=== PATIENT | male | born 1990 | race Hispanic/Latino ===

== ENCOUNTER 2017-11-25 04:29 | Emergency (ER) | payer BC, OTHER ==
--- NOTE | 2017-11-25 05:43 | ED PDOC ---
HPI: Psych/Substance Abuse Time Seen by Provider: 11/25/17 04:30 Chief Complaint (Nursing): Alcohol Ingestion Chief Complaint (Provider): Alcohol Ingestion History Per: Patient History/Exam Limitations: no limitations Current Symptoms Are (Timing): Still Present Modifying Factor(s): Alcohol Additional Complaint(s): 27 year old male was brought to the ER via EMS for alcohol ingestion. Patient reports he is dehydrated and states he drank alcohol 3 hour ago prior to arrival. He denies any head injury or fall. PMD: No Family Provider Past Medical History Reviewed: Historical Data, Nursing Documentation, Vital Signs Vital Signs: Last Vital Signs Temp 97.9 F 11/25/17 04:38 Pulse 87 11/25/17 04:38 Resp 16 11/25/17 04:38 BP 141/85 11/25/17 04:38 Pulse Ox 96 11/25/17 04:38 - Medical History PMH: No Chronic Diseases - Surgical History Surgical History: No Surg Hx - Family History Family History: States: Unknown Family Hx - Social History Ex-Smoker (has not smoked in the last 12 months): No Alcohol: Social Drugs: Denies - Allergies Allergies/Adverse Reactions: Allergies Allergy/AdvReac Type Severity Reaction Status Date / Time No Known Allergies Allergy Verified 11/25/17 05:29 Review of Systems ROS Statement: Except As Marked, All Systems Reviewed And Found Negative Constitutional: Positive for: Other (dehydration) Neurological: Negative for: Other (head injury ) Psych: Negative for: Suicidal ideation (homicidal ideation ) Physical Exam - Reviewed Nursing Documentation Reviewed: Yes Vital Signs Reviewed: Yes - Physical Exam Appears: Positive for: Non-toxic, No Acute Distress Head Exam: Positive for: ATRAUMATIC, NORMAL INSPECTION, NORMOCEPHALIC Skin: Positive for: Normal Color, Warm, Dry Eye Exam: Positive for: EOMI, Normal appearance, PERRL ENT: Positive for: Normal ENT Inspection Neck: Positive for: Normal, Painless ROM, Supple. Negative for: Decreased ROM Cardiovascular/Chest: Positive for: Regular Rate, Rhythm. Negative for: Murmur Respiratory: Positive for: Normal Breath Sounds. Negative for: Decreased Breath Sounds, Wheezing, Respiratory Distress Gastrointestinal/Abdominal: Positive for: Normal Exam, Bowel Sounds, Soft. Negative for: Tenderness, Guarding, Rebound Back: Positive for: Normal Inspection Extremity: Positive for: Normal ROM. Negative for: Tenderness, Pedal Edema, Deformity Neurologic/Psych: Positive for: Alert (awake), Oriented (x3). Negative for: Motor/Sensory Deficits - Laboratory Results Result Diagrams: 11/25/17 06:30 11/25/17 06:30 - ECG O2 Sat by Pulse Oximetry: 96 (RA) Pulse Ox Interpretation: Normal Medical Decision Making Medical Decision Making: Time: 528 Initial Plan: alcohol ingestion --Alcohol Serum --Accucheck --Reevaluation Time: 699 Patient will be endorsed to Dr. Hardin pending sobriety. Scribe Attestation: Documented by Nelsy Carbajal, acting as a scribe for Nilam Kingsley MD. Provider Scribe Attestation: All medical record entries made by the Scribe were at my direction and personally dictated by me. I have reviewed the chart and agree that the record accurately reflects my personal performance of the history, physical exam, medical decision making, and the department course for this patient. I have also personally directed, reviewed, and agree with the discharge instructions and disposition. Disposition - Clinical Impression Clinical Impression: Alcohol ingestion - Patient ED Disposition Is Patient to be Admitted: Transfer of Care - Disposition Disposition: Transfer of Care Disposition Time: 07:00 Condition: FAIR Forms: [employer] (Citizen [place]) Patient Signed Over To: Snehal Hardin Handoff Comments: pending sobriety
[2017-11-25 06:46] LABS: BASO % 0.3 % (0.0-2.0); LYMPH % 9.9 % (20.0-40.0); MEAN CELL VOLUME 86.9 fl (80.0-94.0); MEAN CORPUSCULAR HEMOGLOBIN 30.8 pg (27.0-31.0); MEAN CORPUSCULAR HGB CONC 35.4 g/dL (33.0-37.0); MEAN PLATELET VOLUME 7.6 fl (7.2-11.7); MONO # 0.3 K/uL (0.0-0.8); NEUT # 8.7 K/uL (1.8-7.0); NEUT % 86.8 % (50.0-75.0); PLATELET COUNT 261 K/uL (130-400); RED CELL DISTRIBUTION WIDTH 13.2 % (11.5-14.5)
[2017-11-25 06:58] LABS: ALB/GLOB RATIO 1.3 (1.0-2.1); ALBUMIN 4.8 g/dL (3.5-5.0); ALT/SGPT 39 U/L (21-72); AST/SGOT 56 U/L (17-59); BLOOD UREA NITROGEN 19 mg/dl (9-20); CALCIUM 9.5 mg/dL (8.4-10.2); GFR NON-AFRICAN AMERICAN > 60
--- NOTE | 2017-11-25 07:57 | ED PDOC ---
- Laboratory Results Result Diagrams: 11/25/17 06:30 11/25/17 06:30 - ECG O2 Sat by Pulse Oximetry: 96 (RA) Medical Decision Making Medical Decision Makin.15a Received patient from Dr. Kingsley. Patient is pending sobriety and results of UDS. 8.45a - patient awake and alert. gait steady. will discharge. Disposition - Clinical Impression Clinical Impression: Alcohol abuse with intoxication - POA Present On Arrival: None - Disposition Disposition: Routine/Home Disposition Time: 08:46 Condition: IMPROVED Instructions: Alcohol Abuse and Alcoholism (DC) Forms: [employer] ([employer])
[2017-11-25 09:05] VITALS: BP 112/79; PULSE 91; RESP 18; TEMP 98.5; O2SAT 97
[2017-11-25 09:24] LABS: BARBITURATES, UR NEGATIVE (NEGATIVE); BENZODIAZEPINES, UR NEGATIVE (NEGATIVE); OPIATES, UR NEGATIVE (NEGATIVE); PHENCYCLIDINE, UR NEGATIVE (NEGATIVE)
[2017-11-25 10:15] LABS: BANDS 1 % (0-2); LYMPHOCYTE 10 % (20-50); MONOCYTE 2 % (0-10); NEUTROPHIL 87 % (42-75); TOTAL CELLS COUNTED 100
[2017-11-25 10:16] LABS: PLATELET ESTIMATE NORMAL (NORMAL)
== END 2017-11-25 08:58 | disposition home or self-care (01) ==
LOC: H.ER 04:29
DX: F10.129 Alcohol abuse with intoxication, unspecified (principal)
CPT/HCPCS: 80053; 82948; 85025; 99284; G0480